=== PATIENT | female | born 1990 | race African-American/Black ===

== ENCOUNTER 2017-06-22 04:26 | Day surgery (SDC) | payer OTHER ==
[2017-06-22 05:05] VITALS: BP 109/72; TEMP 98.3; BMI 33.7
--- NOTE | 2017-06-22 05:25 | PDOC.EVN ---
Event Note - Event Note Event Note: @0515: Patient arrives to triage as a patient of Beth stanley, here for eval of "belly tightness" HPI: 27 yo with history of two prior CS, at 30 weeks, with complaint of "belly- button" area tightness. No contractions, no LOF, no VB, no HAs, no abdominal trauma. Good movement. Review of systems: complete ROS done, and negative. ALLergies: none Past medical: remote history of asthma Surical HX: CS X2 Physical exam: vitals stable, afebrile NAD Abd soft and NT No VB No evidence ROM No palp contractions Cervix: deferred as no contractions Monitors: NST Cat 1, no contractions on toco Assessment: 30 weeks, prior CS x 2 with no evidence of labor, with round ligament pain. Plan: 1. reassurance 2. No evidence PTL clincally 3. No evidence ROM 4. NST reactive 5. OK for outpatient care Patient seen and examined.
[2017-06-23] MEDS ORDERED: FLU VACC QS2017-18 36 mo. & older 0.5 ML SYRINGE IM ONE (09:00)
== END 2017-06-22 05:39 | disposition home or self-care (01) ==
LOC: L&D/OP 04:26
PROVIDERS: ATTEND Obstetrics & Gynecology
DX: O99.89 Other specified diseases and conditions complicating pregnancy, childbirth and the puerperium (principal); R10.2 Pelvic and perineal pain; O99.52 Diseases of the respiratory system complicating childbirth; J45.909 Unspecified asthma, uncomplicated; Z3A.30 30 weeks gestation of pregnancy; Z98.891 History of uterine scar from previous surgery
CPT/HCPCS: 59025; 99281

== ENCOUNTER 2017-08-30 15:03 | Inpatient (IN) | payer OTHER ==
[2017-08-30] MEDS ORDERED: Ketorolac Tromethamine 30 MG/ML VIAL ONE ×2 (15:11→17:23)
[2017-08-30] MEDS ORDERED: PHENYLEPHRINE-NS 100 MCG/ML 10 ML SYRINGE ONE ×2 (15:11→16:44)
[2017-08-30 15:40] VITALS: BMI 35.3
[2017-08-30] MEDS ORDERED: Bicitra 30 ML UDCUP ONE (16:08)
[2017-08-30] MEDS ORDERED: CEFAZOLIN/Water 2 GM/20 ML SYRINGE ONE (16:08)
[2017-08-30] MEDS ORDERED: Ondansetron HCl/PF 4 MG/2 ML Vial IVP PRN ×4 (16:11→20:11)
[2017-08-30] MEDS ORDERED: Promethazine HCl 25 MG/ML VIAL IM PRN ×2 (16:11→17:51)
[2017-08-30] MEDS ORDERED: Bicitra 30 ML UDCUP PO ONE (16:15)
[2017-08-30] MEDS ORDERED: CEFAZOLIN/Water 2 GM/20 ML SYRINGE SLOW IVP ONE (16:15)
[2017-08-30] MEDS ORDERED: Lactated Ringer's 1,000 ML IV SCH (16:15)
--- NOTE | 2017-08-30 16:16 | PDOC.EVN ---
Event Note - Event Note Event Note: Labor and Delivery H&P Labor and Delivery H&P Chief complaint: scheduled section HPI: Pt is a 27yo w previous CS x 2 that was scheduled for RCS tomorrow but presented today 08/30/17 in labor. Current gestational age (weeks): 39 Due date: 09/02/17 Dating criteria: first trimester ultrasound Grav: 3 Para: 2 OB History Details: CS x 2 Current complications: none Abnormal US findings: No Current medications: pre- vitamins Previous surgical history: low tranverse CS (x2) Allergies/Adverse Reactions: Allergies Allergy/AdvReac Type Severity Reaction Status Date / Time No Known Drug Allergies Allergy Verified 08/30/17 15:29 Social history: none - Physical Exam Vital signs reviewed and normal: yes General: breathing through contractions Lungs: nonlabored breathing Abdomen: gravid Extremeties: no edema FHT: category 1 [place] contractions every: q 3 - Vaginal Exam cm dilated: 1 - OB Labs Blood type: O RH: positive Antibody Screen: negative HIV: negative RPR: negative HEPSAg: negative 1 hour GCT: positive 3 hour GTT: negative GBS: negative Rubella: immune - Assessment L&D Assessment: scheduled repeat section - Plan Plan: admit to L&D, informed consent obtained, anesthesia consult for pain management
[2017-08-30] MEDS ORDERED: Morphine PF 1 MG/ML SYR ONE (16:43)
[2017-08-30] MEDS ORDERED: Ondansetron HCl/PF 4 MG/2 ML Vial ONE (16:44)
[2017-08-30] MEDS ORDERED: Oxytocin 10 UNITS/ML VIAL ONE (16:44)
[2017-08-30 16:51] LABS: Hemoglobin 13.8 g/dL (12.0-16.0); Mean Corpuscular HGB CONC 32.4 g/dL (32.0-36.0); Mean Corpuscular Hemoglobin 30.8 pg (27.0-31.0); Mean Platelet Volume 11.2 fL (7.4-10.4); Platelet Count 115 thou/uL (130-400); RBC Distribution Width 12.8 % (11.5-14.5); Red Blood Cell (RBC) Count 4.49 mill/uL (4.20-5.40)
[2017-08-30] MEDS ORDERED: Fentanyl 100 MCG/2 ML VIAL ONE (17:24)
--- NOTE | 2017-08-30 17:40 | PDOC.OPDEL ---
OB Operative/Delivery Note Delivery Dr/Surgeon: Carter Assist: Mario Pre-Delivery Diagnosis: other (labor with prev CS x 2) Weeks gestation: 39 Anesthesia: spinal - Findings A Sex: male Weight: 7 lb 3 oz - 1 min: 8 - 5 min: 9 - Additional Findings/Plan Placenta delivered: manual removal findings: low transverse hysterotomy without extension, normal tubes, normal ovaries, other (very thin defect between hysterotomy and ASHLEIGH/bladder flap approx 2cm midline defect repaired w hysterotomy and double layer closure) Estimated blood loss: 800ml Compilations/Other Findings: none
[2017-08-30] MEDS ORDERED: Promethazine HCl 25 MG SUPP PR PRN (17:51)
[2017-08-30] MEDS ORDERED: Eucerin (Mineral Oil/Petrolatum,White) 30 gm Jar TOP PRN (17:51)
[2017-08-30] MEDS ORDERED: Naloxone HCl 0.4 mg/ml Vial IVP PRN ×2 (17:51)
[2017-08-30] MEDS ORDERED: Ketorolac Tromethamine 30 MG/ML VIAL IVP PRN (17:51)
[2017-08-30] MEDS ORDERED: diphenhydrAMINE 50 MG/ML VIAL IVP PRN (17:51)
[2017-08-30] MEDS ORDERED: Naloxone HCl 0.4 mg/ml Vial IV PRN (17:51)
[2017-08-30] MEDS ORDERED: Meperidine HCl/PF 25 MG/ML VIAL SLOW IVP PRN (17:51)
[2017-08-30] MEDS ORDERED: HYDROmorphone 2 MG/ML VIAL SLOW IVP PRN (17:51)
[2017-08-30] MEDS ORDERED: Communication Order-Pharmacy FS SCH (18:00)
[2017-08-30] MEDS ORDERED: Ketorolac Tromethamine 30 MG/ML VIAL IVP SCH (18:00)
[2017-08-30 18:07] LABS: Syphilis Antibody Nonreactive (Nonreactive); Syphilis Antibody Index 0.04 S/CO (<1.00 Non-Reactive)
[2017-08-30 18:09] LABS: HBSAg Index 0.16 S/CO (0-0.99); Hep B Surf Ag Non-Reactive S/CO (NonReactive)
[2017-08-30] MEDS ORDERED: Meperidine HCl/PF 25 MG/ML VIAL ONE (19:34)
[2017-08-30] MEDS ORDERED: LR w/ Pitocin 40 units/1000 ML BAG IV SCH (20:11)
[2017-08-30] MEDS ORDERED: Acetaminophen/Codeine 30-300mg Tablet PO PRN (20:11)
[2017-08-30] MEDS ORDERED: Meperidine HCl/PF 25 MG/ML VIAL IM PRN (20:11)
[2017-08-30] MEDS ORDERED: Adacel (T-DAP) 0.5 ML VIAL IM ONE (20:11)
[2017-08-30] MEDS ORDERED: diphenhydrAMINE 25 MG CAP PO PRN (20:11)
[2017-08-30] MEDS ORDERED: Lanolin Ointment 7 GM TUBE TOP PRN (20:11)
[2017-08-30] MEDS ORDERED: Bisacodyl 10 MG SUPP PR PRN (20:11)
[2017-08-30] MEDS: Ferrous Sulfate 325 MG TAB PO SCH (21:47)
[2017-08-30] MEDS: Docusate Calcium (SURFAK) 240 MG CAP PO SCH (21:47)
--- NOTE | 2017-08-31 03:18 | OP ---
DATE OF PROCEDURE: 08/30/2017 PREOPERATIVE DIAGNOSES: 1. G3, P2-0-0-2 at 39 weeks. 2. Previous section x2, declines trial of labor. 3. Early labor. POSTOPERATIVE DIAGNOSES: 1. G3, P2-0-0-2 at 39 weeks. 2. Previous section x2, declines trial of labor. 3. Early labor. PROCEDURE PERFORMED: Repeat low transverse section with repair of lower uterine segment def ect. SURGEON: Luke Machado D.O. CIVIL DRAFTSMAN: Ken Martin M.D. ANESTHESIA: Spinal per Dr. Valentin. ESTIMATED BLOOD LOSS: 800 mL. COMPLICATIONS: None. FINDINGS: 1. Vigorous male from OP position, Apgars 8 and 9, weight 7 pounds 3 ounces to nurser y. 2. Normal appearing tubes and ovaries bilaterally. 3. Low transverse hysterotomy without extension. However, lower uterine segment defect noted below the hysterotomy approximately 3-4 cm in width repaired. 4. Surgical sites hemostatic. 5. Fundus firm. INDICATIONS FOR PROCEDURE: The patient is a G3, P2 at 39+ weeks who presented in early labor with ap proximately 12 hours of contractions that were painful approximately 2-3 minutes apart. The patient was consented for repeat section. PROCEDURE IN DETAIL: The patient was taken back to the OR with IV fluids running. Once she was in t he OR, she received spinal anesthesia and was placed in dorsal supine position with a left lateral ti lt. The abdomen was prepped and draped in normal fashion for section and [place] catheter was placed using sterile technique. Two grams of Ancef were administered prior to start the procedure. The patient had sequential compression devices bilaterally. After the patient was draped, anesthesi a was tested and found to be adequate. A Pfannenstiel skin incision was made with the scalpel. The skin incision was carried down to the fascia using the scalpel. Once the fascia was reached, it was incised in the midline into anterior and extended superolaterally using curved Wahl scissors. Thomas clamps were placed at the superior border of the fascia, which was sharply and bluntly dissected off the rectus abdominis muscles both caudad and cephalad allowing adequate delivery for the 's he ad. Rectus muscles were in the midline. Peritoneum was tented off the abdomen with Allis clamps and entered using fine dissection with Metzenbaum scissors. Once the peritoneum was entered, it was stretched laterally. Adhesions were noted between the bladder peritoneum and lower uterine se gment and were taken down with Metzenbaum scissors. An Micah O retractor was placed into the perito tai cavity for retraction, visualization and protection of the wound. A low transverse hysterotomy was made through the very thin lower uterine segment with immediate expulsion of clear amniotic fluid . A Barbour maneuver was used to extend the incision. The 's head was noted to be in OP position and was flexed to allow for delivery through the hysterotomy. The was delivered through the abdomen without hysterotomy without difficulty. Nose and mouth were suctioned. The cord was doubly clamped and cut and the was handed off to special care nurses in attendance. Cord blood was c ollected. The placenta was delivered. Uterus was exteriorized, massaged to firm, and cleared of all clot and debris. In addition to the hysterotomy, an additional defect was noted just below the hyst erotomy at the site of the previous dissection of the bladder flap and adhesive tissue of the lower u terine segment. This defect was very thin and was approximately 3-4 cm in width. The hysterotomy wa s repaired incorporating the defect and oversewing into the hysterotomy with Monocryl suture. Once h ysterotomy was closed, a second imbricating layer was placed with Monocryl suture as well. Once the hysterotomy was closed, it was irrigated and suctioned dry with no areas of bleeding noted and hyster ectomy was noted to be hemostatic with confucianist of anatomy. Counts were correct. The Micah O re tractor was removed after the hysterotomy and pericolic gutters were irrigated and suctioned dry. Af ter the Micah O retractor was removed, the fascia and muscle were inspected but no areas of bleeding noted. The fascia was reapproximated with PDS suture from corner to corner and tied separately in t he midline. Subcutaneous layer was irrigated and dried with no areas of bleeding noted. This subcut aneous layer was noted to be very thin, less than 1 cm in depth. Therefore, Monocryl was used next t o close the skin. Dermabond was placed over the skin closure. Uterus was massaged again and noted t o be firm. The patient was cleaned, dried and taken to the recovery room in good condition.
[2017-08-31 05:45] LABS: Hemoglobin 11.5 g/dL (12.0-16.0); Mean Corpuscular HGB CONC 32.2 g/dL (32.0-36.0); Mean Corpuscular Hemoglobin 30.5 pg (27.0-31.0); Mean Corpuscular Volume 94.5 fl (81.0-99.0); Platelet Count 92 thou/uL (130-400); RBC Distribution Width 12.6 % (11.5-14.5); Red Blood Cell (RBC) Count 3.76 mill/uL (4.20-5.40); White Blood Cell (WBC) Count 7.4 thou/uL (4.8-10.8)
[2017-08-31] MEDS: Docusate Calcium (SURFAK) 240 MG CAP PO SCH ×2 (09:11→20:16)
[2017-08-31] MEDS: Acetaminophen/Codeine 30-300mg Tablet PO PRN ×2 (09:11→20:16)
[2017-08-31] MEDS: Prenatal Vitamin 1 TAB PO SCH (09:11)
[2017-08-31] MEDS: Simethicone Chewable 80 MG TAB PO PRN ×2 (09:12→22:01)
[2017-08-31] MEDS: Ferrous Sulfate 325 MG TAB PO SCH ×2 (09:17→20:17)
--- NOTE | 2017-08-31 13:59 | PDOC.PP ---
Post Progress Note Post Day #: 1 Subjective: doing well, ambulating, tolerating regular diet, breast feeding difficulties PO intake tolerated: yes Flatus: yes Ambulation: yes Vital Signs (12 hours) Temp Pulse Resp BP 08/31/17 08:00 98.6 F 67 20 08/31/17 07:41 98.6 F 67 20 97/57 L 08/31/17 04:00 98.2 F 66 16 107/67 Weight Weight 181 lb - Physical Examination General: NAD Respiratory: non-labored breathing Abdominal: no distention, appropriately TTP Fundus firm & at: below umb Extremities: negative homans (B) Skin: CS incision dry & intact Neurological: no gross focal deficits Psychiatric: A&Ox3, normal affect Result Diagrams: 08/31/17 05:01 Additional Labs: Post Labs Blood Type O POSITIVE 08/30/17 16:17 Hep Bs Antigen Non-Reactive S/CO (NonReactive) 08/30/17 16:17 (1) delivery, delivered, current hospitalization Code(s): O82 - ENCOUNTER FOR DELIVERY WITHOUT INDICATION Status: Acute - Assessment/Plan A/P: POD 1, sp RCS. LC placed for issues getting baby to latch. Meeting post op goals. Possible DC tomorrow.
[2017-08-31] MEDS: Ibuprofen 800 MG TAB PO SCH ×2 (14:17→22:01)
[2017-08-31] MEDS ORDERED: Loratadine 10 MG TAB PO PRN (21:23)
[2017-08-31] MEDS: Guaifenesin DM 100-10/5 ML UDCUP PO PRN (22:11)
[2017-09-01] MEDS: Acetaminophen/Codeine 30-300mg Tablet PO PRN ×2 (06:27→12:15)
[2017-09-01] MEDS: Ibuprofen 800 MG TAB PO SCH ×2 (06:27→14:20)
[2017-09-01] MEDS: Guaifenesin DM 100-10/5 ML UDCUP PO PRN ×2 (07:10→12:45)
--- NOTE | 2017-09-01 08:37 | PDOC.PP ---
Post Progress Note Post Day #: 2 Subjective: doing well, some issues w latch still, min discomfort PO intake tolerated: yes Flatus: yes Ambulation: yes Weight Weight 181 lb - Physical Examination General: NAD Respiratory: non-labored breathing Abdominal: no distention, appropriately TTP Fundus firm & at: below umb Extremities: negative homans (B) Skin: CS incision dry & intact, no rash Neurological: no gross focal deficits Psychiatric: normal affect Result Diagrams: 08/31/17 05:01 Additional Labs: Post Labs Blood Type O POSITIVE 08/30/17 16:17 Hep Bs Antigen Non-Reactive S/CO (NonReactive) 08/30/17 16:17 (1) delivery, delivered, current hospitalization Code(s): O82 - ENCOUNTER FOR DELIVERY WITHOUT INDICATION Status: Acute - Assessment/Plan POD2 doing well, no concerns other than working w nursing, possible DC today vs tomorrow.
[2017-09-01] MEDS: Docusate Calcium (SURFAK) 240 MG CAP PO SCH (08:55)
[2017-09-01] MEDS: Prenatal Vitamin 1 TAB PO SCH (08:55)
[2017-09-01] MEDS: Ferrous Sulfate 325 MG TAB PO SCH (08:56)
[2017-09-01] MEDS: Simethicone Chewable 80 MG TAB PO PRN (08:58)
[2017-09-01 12:55] VITALS: BP 116/75; TEMP 98
--- NOTE | 2017-09-02 14:27 | PQF ---
DREAD BROOKS JEAN UMANA DO [id number] CLINICAL DOCUMENTATION CLARIFICATION FORM: POST DISCHARGE Addendum to original discharge summary date: ____ Late entry note date: __ DATE: 09/02/2017 ATTN: DR. UMANA Please exercise your independent, professional judgment in responding to the clarification form. Clinical indicators are provided on the bottom of this form for your review Please check appropriate box(s): In the description of the operative procedure a AN ADDITIONAL DEFECT WAS NOTED JUST BELOW HYSTEROTOMY was noted by the surgeon. If possible would you please further clarify if this was: [ x] Incidental occurrence inherent in the surgical procedure [ ] Complication of the procedure [ ] Other [ ] Unable to determine For continuity of documentation, please document condition throughout progress notes and discharge summary. Thank You. CLINICAL INDICATORS - SIGNS / SYMPTOMS / LABS: OP REPORT: REPEAT LOW TRANSVERSE SECTION WITH REPAIR OF LOWER UTERINE SEGMENT DEFECT " IN ADDITION TO THE HYSTEROTOMY, AN ADDITIONAL DEFECT WAS NOTED JUST BELOW THE HYSTEROTOMY AT THE SITE OF THE PREVIOUS DISSECTION OF THE BLADDER FLAP AND ADHESIVE TISSUE OF THE LOWER UTERINE SEGMENT." RISK FACTORS: REPEAT SECTION TREATMENTS: Surgery / surgical instrumentation (This form is maintained as a part of the permanent medical record) [employer] [id number] [employer], [email or web address]. All Rights Reserved Yancy Paul, CHELI, TRAIN GATE ATTENDANT-H [email or web address] [phone] [email or web address]
== END 2017-09-01 15:40 | disposition home or self-care (01) | DRG 765 ==
LOC: L&D/OP 15:03 → L&D 16:06 → 3SW 20:16
PROVIDERS: ADMIT Obstetrics & Gynecology; ATTEND Obstetrics & Gynecology
PROC: 10D00Z1 Extraction of Products of Conception, Low, Open Approach (ICD-10-PCS; principal; 2017-08-30)
PROC: 0UQ90ZZ Repair Uterus, Open Approach (ICD-10-PCS; 2017-08-30)
DX: O34.211 Maternal care for low transverse scar from previous cesarean delivery (principal); O60.23X1 Term delivery with preterm labor, third trimester, fetus 1; Z37.0 Single live birth; Z3A.39 39 weeks gestation of pregnancy
CPT/HCPCS: 36415; 51702; 85027; 86780; 86850; 86900; 86901; 87340; 90715; 99285; J1885; J2175; J2274; J2310; J2405; J2590; J3010